=== PATIENT | female | born 1975 ===

== ENCOUNTER 2020-02-15 05:05 | Day surgery (SDC) | payer OTHER ==
[~2020-02-15 05:05] MED LIST: MULTIVITAM PO
== END 2020-02-15 13:15 | disposition home or self-care (01) ==
LOC: CIR.AMB 05:05 → ADM 09:45 → CIR.AMB 13:15
PROVIDERS: ATTEND Obstetrics & Gynecology
DX: N84.0 Polyp of corpus uteri (principal); Z30.2 Encounter for sterilization

== ENCOUNTER 2025-02-15 05:49 | Day surgery (SDC) | payer OTHER ==
[2025-02-10 08:36] VITALS: BP 121/81
[2025-02-10 08:48] LABS: BASO % 0.2 % (0.1-1.2); EOS # 0.04 (0.04-0.54); EOS % 0.8 % (0.7-7.0); HEMATOCRIT 38.9 % (34.1-44.9); HEMOGLOBIN 12.7 g/dL (11.2-15.7); LYMPH % 26.3 % (19.3-53.1); MEAN CORPUSCULAR HEMOGLOBIN 29.5 pg (25.6-32.2); MONO # 0.31 (0.24-0.82); MONO % 6.3 % (4.7-12.5); NEUT # 3.27 (1.56-6.13); NEUT % 66.2 % (34.0-71.1); PLATELET COUNT 235 K/uL (163-369); RED CELL DISTRIBUTION WIDTH 12.5 % (11.6-14.4)
[2025-02-10 08:51] LABS: URINE APPEARANCE Clear; URINE BILIRRUBIN Negative (NEGATIVE); URINE BLOOD Negative; URINE COLOR Yellow; URINE GLUCOSE Negative (NEGATIVE); URINE KETONE Negative (NEGATIVE); URINE LEUKOCYTE Negative; URINE NITRATE Negative; URINE PROTEIN Negative (NEGATIVE); URINE UROBILINOGEN 0.2 E.U./dl
[2025-02-10 08:56] LABS: URINE BACTERIA 4.8 uL (0.0-1933)
[2025-02-10 09:08] LABS: INR 0.97; PARTIAL THROMBOPLASTIN TIME 26.2 SECONDS (22.0-34.0); PROTHROMBIN TIME 10.6 SECONDS (9.0-11.5)
[2025-02-10 09:09] LABS: URINE EPITHELIAL CELLS 0.9 uL (0.0-38.8); URINE RBC 0.7 uL (0.0-20.8); URINE WBC 0.7 uL (0.0-23.2)
[2025-02-10 09:47] LABS: ALBUMIN 3.9 gm/dL (3.4-5.0); BILIRUBIN TOTAL 0.34 mg/dL (0.3-1.2); CALCIUM 9.3 mg/dL (8.5-10.1); CREATININE SERUM 0.62 mg/dL (0.55-1.02); GFR 101.48; GLOBULINA 3.7 G/DL (2.4-3.5); POTASSIUM 4.26 mEq/L (3.5-5.1); TOTAL PROTEIN 7.6 gm/dL (6.4-8.2)
[~2025-02-15] VITALS: Ht 160 cm; Wt 72.6 kg
[2025-02-15] MEDS ORDERED: POVIDONE-IODINE 118 ML BOTT TOP ONE (09:14)
[2025-02-15] MEDS ORDERED: ONDANSETRON HCL 2 MG/ML VIAL IV STA (11:08)
[2025-02-15] MEDS ORDERED: KETOROLAC TROMETHAMINE 30 MG VIAL IV ONE (11:15)
[2025-02-15] MEDS ORDERED: ONDANSETRON HCL 2 MG/ML VIAL ONE (12:44)
[2025-02-15] MEDS ORDERED: KETOROLAC TROMETHAMINE 30 MG VIAL ONE (12:44)
== END 2025-02-15 15:00 | disposition home or self-care (01) ==
LOC: CIR.AMB 05:49
PROVIDERS: ATTEND Obstetrics & Gynecology
DX: C54.1 Malignant neoplasm of endometrium (principal); N95.0 Postmenopausal bleeding; Z91.013 Allergy to seafood